=== PATIENT | male | born 1980 | race Two or more races ===

== ENCOUNTER 2025-06-26 04:48 | Emergency (ER) | payer OTHER ==
[~2025-06-26] VITALS: Ht 182.9 cm; Wt 86.4 kg
--- NOTE | 2025-06-26 04:58 | Physician Documentation ---
History of Present Illness ~ Chief Complaint: Flank Pain Stated Complaint: FLANK PAIN Time Seen by MD: 04:53 HPI This is a 44-year-old gentleman with a known history of kidney stones, seen by myself at [facility] two days ago, diagnosed with a 4 mm kidney stone in the left side, sent home with a prescription for Flomax and Wartrace, presents for evaluation of ongoing pain. He feels that Wartrace is not helping. His anaphylactic allergic to NSAIDs and can not take them. No new symptom otherwise. The pain continues to be located in his left flank. Seemed to be moving down slowly. No dysuria, hematuria, fever, altered mental status. Reports chills and nausea but no vomiting. Medication Reconciliation Allergies: Coded Allergies: ibuprofen (Verified Allergy, Unknown, 06/26/25) Scheduled Hydrocodone Bit/Acetaminophen 5/325 MG (Wartrace 5/325 MG), 1 TAB PO Q6H Review of Systems ROS 10 point review of systems was performed and unless noted above in HPI is negative for acute process/complaint. Physical Exam Vital Signs: Temperature: 96.3, Source: Temporal, Heart Rate: 68, Respiratory Rate: 18, BP: 141/97, Pulse Oximetry: 98, Weight: 86.360 Physical Exam Physical examination: GENERAL: Awake, alert, oriented, GCS 15, no apparent distress, non-toxic appearing, answers questions, follows commands appropriately. HEENT: Atraumatic, normocephalic, pupils equal, extraocular muscles intact Active gross movements, sclerae anicteric, mucus membranes moist, no stridor. NECK: Midline, no JVD CARDIOVASCULAR: Good skin perfusion without evidence of pallor, mottling. PULMONARY: Nonlabored, symmetric chest rise, no audible wheezing, no accessory muscle use, no respiratory distress, speaking in full sentences. GASTROINTESTINAL: Not distended. NEUROLOGIC: Lucid with normal mental status. Normal facial symmetry. Moves all extremities symmetrically and with purpose. No truncal ataxia. Speech is fluid without evidence of dysarthria or aphasia, no focal deficits appreciated. EXTREMITIES: Acute deformities Skin: warm, dry PSYCHIATRIC: Normal affect, normal insight, normal concentration. Focused exam: [] Progress Results/Orders Results/Orders Orders - MARYSE REYNOLDS MD Ct Abdomen Pelvis (06/26/25 08:27) Completed Orders - MARYSE REYNOLDS MD Ct Abdomen Pelvis (06/26/25 08:27) Tramadol Tablet (Ultram Tablet) (06/26/25 08:30) Hydrocodone/Apap 5/325mg Tab (Wartrace /32 (06/26/25 09:25) Medications Received in ER Medications (Trade) Dose Ordered Sig/Jacqueline Route PRN Reason Start Time Stop Time Status Last Admin Dose Admin (Dilaudid inj.) 2 mg ONCE ONCE IM 06/26/25 04:55 06/26/25 04:56 DC 06/26/25 05:09 2 MG (Ultram tablet) 50 mg ONCE ONCE PO 06/26/25 08:30 06/26/25 08:31 DC 06/26/25 09:10 50 MG Vital Signs 06/26/25 06/26/25 06/26/25 04:49 09:10 09:12 Temp 96.3 98.1 Pulse 68 67 Resp 18 16 16 B/P (MAP) 141/97 154/98 (116) Pulse Ox 98 98 O2 Flow Rate 0 Laboratory Tests Test 06/26/25 08:05 Urine Specimen Description Cln catch midstream Urine Color Verónica Urine Clarity Slightly cloudy Urine pH 5.5 Urine Specific [place] >=1.030 Urine Protein 100 H Urine Glucose (UA) Negative Urine Ketones >=80 Urine Occult Blood Large H Urine Nitrite Negative Urine Bilirubin Moderate Urine Urobilinogen 1.0 Urine Leukocyte Esterase Negative Urine RBC 50-100 Urine WBC 0-4 Urine Squamous Epithelial Cells Few Urine Uric Acid Crystals Few Urine Bacteria Few Urine Fine Granular Casts 0-3 Urine Mucus Many Urine Culture Indicated Not ind Volume Urine Centrifuged 10 ml Urine Comment Medical Decision Making Findings Facility Status: ED Holds, [facility] process The plan was discussed with the patient, who demonstrates clear understanding of the plan and is in agreement with the plan unless otherwise noted in the chart. All questions have been answered, all concerns were addressed unless otherwise documented. I was available throughout their ED stay for frequent reassessment and questions. Differential Diagnoses (considered and possible or likely): [Ongoing renal colic, poorly controlled pain, unlikely to represent infected stone, especially since the gentleman is already on antibiotics and he is clinically well appearing, hemodynamically stable.] ??Differential Diagnoses (considered and unlikely, not requiring evaluation currently): [Unlikely to represent acute intra-abdominal process requiring surgical intervention] MDM Data Please see HPI for the following: Independent Historians and external Records Review. Historian: [Patient] Independent Historians: ?[Record review from Kristie Huff. The patient had a 5 mm stone, proximal in the left ureter. Urine had red blood cells and white blood cells. He received antibiotics. The culture did not grow any significant pathogens.] Medication Management: [Reviewed medication list] Social History and determinants: [Reviewed] Please see the body of the note for the following: Any independent interpretations of ECG, imaging studies. All vitals signs/haemodynamics, ordered tests were independently reviewed and interpreted by myself. Nursing triage complaint and vitals reviewed, additional nursing notes were reviewed as available and I agree unless otherwise noted or documented in contradiction in the chart Vital Signs: Independently reviewed Labs: Independently interpreted Imaging: Independently interpreted Old Medical Records: Independently reviewed, see [facility] for relevant summary and information Pulse Oximetry: [98%] interpreted as [normal on room air] by me Additionally notably showing: [Hemodynamically stable. No fever. No tachycard ia.] Tests considered but not ordered include: [Imaging has been considerably does not appear to be necessary as this seems to be a pain control issue] Social Determinants of Health Impact: Patient was evaluated in [facility], or [facility] [place] to healthcare due to below par ratio of patient to medical providers. [] Comorbid Conditions Impacting Present Evaluation and Care/Treatment: [Known history of renal stones] Management Discussions with other Healthcare Providers: [] Treatment and Disposition Medication Management (Given or considered): [Pain management]. See EMR for details Consideration for Hospitalization/Escalation/Deescalation of Care: Admission for observation has been considered, [however the patient is able to tolerate p.o., their symptoms are controlled, they are able to rely on oral medications, and their chief complaint/diagnosis can be managed on outpatient basis.] ?ED Course:?[No clinical deterioration] ?Shared decision making:?[] Code status:?FULL Please see the full Electronic Medical Record for full details of nursing documentation, medications list, other records of complete past medical history and conditions, vital signs, laboratory studies, and any radiologic study interpretations by radiologists. Portions of this note were completed using [employer] dictation software and as a result there may exist minor errors in spelling. I have reviewed elements of past family and social history and agree as included in note. Additional Comment Assumed care of patient from Dr. Hammond. Came in with continued pain. Seen approximately 3 days ago with left 4 mm kidney stone. Here with continued pain. On hydrocodone and Flomax. He was given Dilaudid initially upon arrival which did not help with his pain. Anaphylaxis to Advil. Also to Toradol. Gave Ultram with very little improvement. Urinalysis is unremarkable but he is on Keflex. CT scan shows mid ureteral 4 mm stone with moderate hydro. Discussed with the inpatient importance of calling the urology office on Friday to arrange follow up. He has Flomax at home and only 4 Wartrace tabs. Giving a script for additional 8 Wartrace tabs. Gave a Wartrace in the ER. Discharging home in good condition. He is to return here if worsening prior to follow up with Urology. Also to strain his urine. Departure Disposition: HOME / SELF CARE / HOMELESS Impression: Primary Impression: Renal colic Additional Impression: Calculus of kidney Condition: Stable Discharge Instructions: Renal Colic, Kidney Stones Referrals: NO PRIMARY CARE PROVIDER (PCP) CHRISTY HOLLAND MD Prescriptions Hydrocodone Bit/Acetaminophen 5/325 MG (Wartrace 5/325 MG) 5 Mg/325 Mg Tablet 1 TAB PO Q6H, #8 TAB prn pain Prov: MARYSE REYNOLDS MD 06/26/25 Education Educated: Patient Educated regarding: diagnosis, treatment, prognosis, need for follow up Signature Scribe Signature: No scribe Attestation: This note accurately reflects clinical decisions, work performed by myself, DO JORDYN Vu NICHOLAS M DO Jun 26, 2025 04:58 MARYSE REYNOLDS MD Jun 26, 2025 09:22
[2025-06-26 08:15] LABS: LEUKOCYTE ESTERASE ,URINE NEGATIVE (Neg); NITRITES, URINE NEGATIVE (Neg); OCCULT BLOOD,URINE LARGE (Neg)
[2025-06-26 08:16] LABS: UA COLLECTION TYPE CLN CATCH MIDSTREAM
[2025-06-26 08:23] LABS: MUCUS STRANDS MANY /LPF (Neg); SQUAMOUS EPITHELIAL CELL,UR FEW /LPF (FEW)
[2025-06-26 08:24] LABS: FINE GRANULAR CAST 0-3 /LPF (NEGATIVE); URIC ACID CRYSTALS FEW /HPF (NEGATIVE)
--- NOTE | 2025-06-26 09:18 | RADIOLOGY REPORT ---
CLINICAL HISTORY: left 5mm renal stone, continued pain TECHNIQUE: CT of the abdomen and pelvis was performed without IV contrast. This exam was performed ac cording to our departmental dose optimization program. Up-to-date CT equipment and radiation dose red uction techniques are utilized as appropriate. CTDI 15.7 DLP 808.1 COMPARISON: None FINDINGS: Abdomen/Pelvis: The spleen, pancreas, adrenal glands, liver, gallbladder, right kidney, and prostate gland are grossl y unremarkable. The bladder is not well distended and therefore not well evaluated. There is a 4 mm mid left ureteral calculus resulting in moderate hydroureteronephrosis. The abdominal aorta is normal in course and caliber. There are minimal atherosclerotic calcifications . There is no free intraperitoneal air or fluid. There is no enlarged abdominal pelvic lymph node. There is no bowel wall thickening or dilatation. The appendix is absent. There is a tiny fat containi ng umbilical hernia. Other: The imaged lower thorax is unremarkable. No acute osseous abnormality is evident. Impression: 4 mm left mid ureteral calculus resulting moderate hydroureteronephrosis.
[2025-06-26] MEDS ORDERED: HYDR-3965 PO (09:26)
[2025-06-26 10:17] VITALS: TEMP 98.2
[2025-06-26] MEDS: HYDROcodone/acetaminophen 5mg/325mg tablet PO ONE (10:43)
[2025-06-26 11:01] VITALS: BP 127/83; PULSE 68; RESP 16; O2SAT 99
== END 2025-06-26 11:02 | disposition home or self-care (01) ==
LOC: ER 04:49
DX: N20.0 Calculus of kidney (principal)
CPT/HCPCS: 74176; 81001; 96372; 99285; J1171